=== PATIENT | female | born 2005 | race Caucasian/White ===

== ENCOUNTER 2023-07-15 12:41 | Emergency (ER) | payer OTHER, SELFPAY ==
[2023-07-15 12:55] VITALS: BP 121/78
[2023-07-15 13:21] LABS: % Basophils 0.4 % (0-2); % Eosinophils 2.3 % (0-6); % Immature Granulocytes 0.3 % (0-0.5); % Lymphocytes 38.5 % (20.5-51.1); % Monocytes 8.4 % (1.7-9.3); % Neutrophils 50.1 % (42.2-75.2); Absolute Eosinophils 0.2 10^3/uL (0-0.7); Absolute Lymphocytes 2.7 10^3/uL (1.2-3.4); Absolute Monocytes 0.6 10^3/uL (0.1-0.6); Absolute Neutrophils 3.5 10^3/uL (1.4-6.5); Hematocrit 42.8 % (37.0-47.0); Hemoglobin 14.5 g/dL (12.0-16.0); Mean Corp Hgb Conc. 33.9 g/dL (33.0-37.0); Mean Corpuscular Hgb 30.1 pg (27.0-31.0); Mean Corpuscular Volume 88.8 fL (81.0-99.0); Mean Platelet Volume 10.5 fL (7.4-10.4); Nucleated Red Blood Cells % 0 %; Platelet Count 408 10^3/uL (130-400); Red Blood Cell Count 4.82 10^6/uL (4.20-5.40); Red Cell Dist. Width 12.4 % (11.5-14.5); White Blood Cell Count 6.9 10^3/uL (4.8-10.8)
[2023-07-15 13:33] LABS: HCG, Serum Qualitative Screen Negative
[2023-07-15 13:36] LABS: ALT (SGPT) 23 U/L (0-35); AST (SGOT) 29 U/L (14-36); Albumin 4.9 g/dl (3.5-5.0); Alkaline Phosphatase 63 U/L (38-126); Blood Urea Nitrogen 12 mg/dl (7-17); Carbon Dioxide 24 mmol/L (22-30); Chloride 104 mmol/L (98-107); Glucose 90 mg/dl (70-99); Potassium 4.7 mmol/L (3.5-5.1); Sodium 136 mmol/L (135-145); Total Bilirubin 0.7 mg/dl (0.2-1.3); Total Protein 7.3 g/dl (6.3-8.2); eGFR > 60.00
[2023-07-15 13:44] LABS: Troponin I < 0.012 ng/ml
[2023-07-15 15:02] VITALS: BMI 25.1
--- NOTE | 2023-07-15 15:17 | ED.GENMED ---
History of Present Illness
General
Chief Complaint: Chest Pain
Source: patient and family
Exam Limitations: none
Time Seen by Provider: 07/15/23 15:05
Nursing documentation reviewed up to this point in time: agreed with
Travel History
Have you had any contact with someone who has COVID-19?: No
Do you have any symptoms of coronavirus? Fever > 100 degrees, chills, cough, shortness of breath, sore throat, loss of taste or smell, muscle aches, or headache?: No
History of Present Illness
History of Present Illness:
18-year-old female presents emergency department due to chest pain for the past 3 days right-sided. She has had a productive cough of yellow sputum for the past several weeks. No fevers. She is upset and not giving a history to myself. Her
father contributes with a history of her intermittent coughing for the past several months.
Past History
Past History
ED Past Medical History: None
ED Past Surgical History: None
Social History
Tobacco: Non-smoker
Alcohol: None
Drug: None
Personal: Single
Employment: Student
Review of Systems
Review of Systems
Allergies reviewed?: Yes
All Other Systems: Not applicable
Constitutional: Reports no symptoms
EENT: Reports no symptoms
Respiratory: Reports cough
Cardiac: Reports chest pain
ABD/GI: Reports no symptoms
: Reports no symptoms
Musculoskeletal: Reports no symptoms
Skin: Reports no symptoms
Neurological: Reports no symptoms
Endocrine: Reports no symptoms
Hematologic/Lymphatic: Reports no symptoms
Psychiatric: Reports no symptoms
Phy Exam
Physical Exam
Physical Exam:
Physical Exam
General: no apparent distress, not acutely ill
Neck: supple. no meningeal signs. normal posterior pharynx
Heart: s1/s2 regular rate and rhythm, no murmur. equal radial
pulses.
HEENT: EOMI
Lungs: no acute respiratory distress. clear bilaterally, mild tenderness palpation on right side.
Abdomen: normal bowel sounds. not tender. no CVAT
Neuro: alert and oriented. no focal neurological deficits cranial nerves II through XII intact
Skin: no rash
Psychiatric: well kept. interactive and cooperative
Extremities: no edema.
Scores
Heart Score for Chest Pain Patients
STEMI patient?: No
History: Slightly or Non-Suspicious
ECG: Normal
Age: </= 45 years
Risk Factors: No Risk Factors
Troponin: </= Normal Limit
Heart Score for Chest Pain Patients: 0
Heart Score Risk: 2.5% MACE over next 6 weeks
Course
Orders/Labs/Results
Orders:
Orders
07/15/23 12:45
ECG [Electrocardiogram (*1)] Urgent
Reason for Study: Chest Pain
EKG- Treatment ONCE
07/15/23 12:59
Test Result ONCE
07/15/23 13:00
Chest [CR Chest - 2 Views ] Urgent
Comment:
Reason For Exam: cough, SOB, CP
07/15/23 13:06
Complete Blood Count/With Diff Urgent
Comprehensive Metabolic Panel Urgent
HCG, Serum Qualitative Screen Urgent
Troponin I Urgent
Abnormal Lab Results
07/15/23
13:06
Plt Count 408 H 10^3/uL
(130-400)
MPV 10.5 H fL
(7.4-10.4)
07/15/23 13:06
07/15/23 13:06
Vital Signs
Initial and Last Documented VS:
Initial Vital Signs
Temp Pulse Resp BP Pulse Ox
98.8 F 91 18 121/78 98
07/15/23 12:55 07/15/23 12:55 07/15/23 12:55 07/15/23 12:55 07/15/23 12:55
Last Documented Vital Signs
Temp Pulse Resp BP Pulse Ox
98.2 F 76 16 115/85 99
07/15/23 15:36 07/15/23 15:36 07/15/23 15:36 07/15/23 15:36 07/15/23 15:36
MDM/Problems Addressed
Differential Diagnosis Includes:
PE, pneumonia, pneumothorax
MDM/Problems Addressed:
18-year-old female with right-sided chest pain, likely from coughing. Mild tenderness to palpation. Do not suspect PE ACS or pneumonia.
*Radiology
Radiology exam reviewed: radiology read reviewed (Chest x-ray no acute findings)
*Pulse Oximetry
Patient hypoxic: no
*EKG
Interpreted by ED Provider?: Yes
EKG Intrepretation Date: 07/15/23
EKG Intrepretation Time: 12:48
Interpretation: abnormal
Comparison EKG: no changes
Heart Rate: 97
Rate: normal
Rhythm: sinus
Celeste: normal axis
Interval: normal interval
QRS Pattern: normal QRS
Ischemia: no ischemia
*Spray Ii Painter Interpretation
Rate: normal
Interpretation: normal
Heart Rate: 88
Rhythm: sinus
*Critical Care Note
Total Time (30-74mins, 75-104mins- exclusive of procedures): Not Applicable
Patient Management
Social determinants of health affecting care: Living situation
Escalation/DeEscalation of care consider admission/obs:
admit not indicated
ED Attending Note
-
Portions of this chart may have been created with voice recognition software.� Occasional wrong word or��sound alike� substitutions may have occurred due to the inherent limitations of voice recognition software.
Discharge Plan
Departure
Patient Disposition: Home (Routine Discharge)
Date of Disposition: 07/15/23
Time of Disposition: 15:28
Patient with high blood pressure during this ER visit?: Yes
Condition: Good
Discharge Problem:
Chest pain, non-cardiac
Instructions: Chest Pain That Is Not Caused by the Heart (DC), Cough, Adult (DC), BLOOD PRESSURE
Prescriptions:
No Action
No Current Medications
0
Activity Restrictions/Additional Instructions:
Return for any concerns. Follow up with primary care.
Interventions
Interventions:
*Risk Screen - Suicide Last Done: 07/15/23 15:02
*General Assessment Last Done: 07/15/23 12:55
*Neglect/Abuse Screening Last Done: 07/15/23 15:02
ED- Fall Risk Assessment Last Done: 07/15/23 15:02
*ED COVID-19 Vaccine History Last Done: 07/15/23 12:55
*Nursing Disposition Last Done: 07/15/23 15:36
ED- Cardiac Assessment Last Done: 07/15/23 15:02
Discharge Date and Time
Discharge Date/Time: 07/15/23 15:37
Print Language: PALESTINIAN
[2023-07-15 15:36] VITALS: BP 115/85
== END 2023-07-15 15:37 | disposition home or self-care (01) ==
LOC: EMR 12:41
PROVIDERS: Emergency Medicine; EMERGENCY PHYSICIAN Emergency Medicine; FAMILY PHYSICIAN Family Medicine
DX: R07.89 Other chest pain (principal); R05.9 Cough, unspecified; R06.02 Shortness of breath; R03.0 Elevated blood-pressure reading, without diagnosis of hypertension
CPT/HCPCS: 99285; 71046; 80053; 84484; 84703; 85025; 93005